=== PATIENT | female | born 1965 | race Caucasian/White ===

== ENCOUNTER 2020-03-10 08:24 | Day surgery (SDC) | payer MEDICARE ==
[~2020-03-10 08:24] MED LIST: Bupivacaine 0.5% 50 ML MDV ONE
[2020-03-10] MEDS ORDERED: Lactated Ringers 1,000 ML IV SCH (09:00)
[2020-03-10] MEDS ORDERED: Nozin Nasal Sanitizer NASBOTH ONE (09:00)
[2020-03-10] MEDS ORDERED: Midazolam 1 MG/ML 2 ML SDV ONE (10:45)
[2020-03-10] MEDS ORDERED: fentaNYL 100 MCG/2 ML SDV ONE (10:45)
[2020-03-10] MEDS ORDERED: Propofol 200 MG/20 ML SDV ONE (10:45)
[2020-03-10] MEDS ORDERED: ceFAZolin 1 GM Vial ONE (11:11)
[2020-03-10] MEDS ORDERED: Acetaminophen/oxyCODONE 325-5 MG Tab PO ONE (12:00)
--- NOTE | 2020-03-22 20:11 | OR ---
DATE OF PROCEDURE: 03/10/2020 SURGEON: Anthony Garrison MD PREOPERATIVE DIAGNOSIS: Hematoma, right knee. POSTOPERATIVE DIAGNOSIS: Hematoma, right knee, subcutaneous. PROCEDURE: Evacuation of hematoma, right knee. ANESTHESIA: General. INDICATIONS: Lori is a 54-year-old female who sustained a fall on to her right knee approximately 1 month ago resulting in a large bruise and hematoma to the medial parapatellar region. She has had persistent pain and limitation of range of motion since that time. The area remains inflamed, tender, and sore. She now presents for evacuation of hematoma and evaluation for potential infection and ceding of the hematoma. The risks, benefits, and potential complications were discussed. DESCRIPTION OF PROCEDURE: After adequate anesthesia was obtained with sedation and local infiltration, the leg was prepped and draped in a sterile fashion. An incision was made over the central portion of the hematoma medial to the patella, carried down through the subcutaneous tissue, and the space was in encountered with old clotted blood consistent with hematoma. Cultures were taken from the space. Clot was evacuated using combination of suction and direct pressure, expressing the clot material. The space was thoroughly irrigated. Any remaining clots were removed with a curette and forceps. Hematoma included fairly large subcutaneous pocket above the capsule, measuring approximately 7 cm in width and 4.5 to 5 cm in length. Once this had been thoroughly evacuated, a #10 round drain was placed and brought out through a separate incision. The initial incision was closed with 2- 0 Vicryl and a 3-0 Monocryl with Steri-Strips. A compressive dressing was then applied, and the drain bulb was activated. The patient tolerated procedure very well. There were no complications. She was taken from the operating room in a stable condition. She has been instructed on wound care and removal of the drain in approximately 48 hours. Anthony Garrison MD /[id number]
== END 2020-03-10 13:16 | disposition home or self-care (01) ==
LOC: JP.SDS 08:24
PROVIDERS: ATTEND Specialist
DX: S80.01XA Contusion of right knee, initial encounter (principal); Z88.0 Allergy status to penicillin
CPT/HCPCS: 36415; 80053; 85027; 87070; 87075; 87205; A9270-GY; J0690; J2250; J2704; J3010; J3490; J7120